=== PATIENT | male | born 1980 | race Two or more races ===

== ENCOUNTER 2019-12-16 13:17 | Emergency (ER) | payer OTHER ==
[~2019-12-16] VITALS: Ht 180.3 cm; Wt 117.9 kg
[2019-12-16] MEDS ORDERED: IBESARTAN (14:54)
== END 2019-12-16 19:30 | disposition home or self-care (01) ==
LOC: ER 13:17
DX: J11.1 Influenza due to unidentified influenza virus with other respiratory manifestations (principal)